=== PATIENT | male | born 1960 | race Caucasian/White ===

== ENCOUNTER 2021-09-29 06:55 | Day surgery (SDC) | payer OTHER, SELFPAY ==
[~2021-09-29] VITALS: Ht 162.6 cm; Wt 88.9 kg
[2021-09-29] MEDS ORDERED: MIDAZOLAM 2 MG/2 ML VIAL ONE (08:47)
[2021-09-29] MEDS ORDERED: fentaNYL citrate 0.05 MG/ML VIAL ONE (08:47)
[2021-09-29] MEDS ORDERED: diphenhydrAMINE 50 MG/ML VIAL ONE (08:47)
[2021-09-29] MEDS ORDERED: LIDOCAINE 2% 100 MG/5 ML UJET TP ONE ×2 (08:48→09:10)
[2021-09-29] MEDS ORDERED: fentaNYL citrate 0.05 MG/ML VIAL IVP ONE (09:10)
[2021-09-29] MEDS ORDERED: MIDAZOLAM 2 MG/2 ML VIAL IVP ONE (09:10)
== END 2021-09-29 10:23 | disposition home or self-care (01) ==
LOC: MDS 06:55 → MMU 06:55 → MDS 10:23
PROVIDERS: ATTEND Internal Medicine Gastroenterology
DX: Z12.11 Encounter for screening for malignant neoplasm of colon (principal); D12.3 Benign neoplasm of transverse colon; D12.8 Benign neoplasm of rectum; D12.4 Benign neoplasm of descending colon; Z20.822 Contact with and (suspected) exposure to COVID-19; Z79.899 Other long term (current) drug therapy
CPT/HCPCS: 45385; 87426; J2250; J3010; 88305; J1200